=== PATIENT | female | born 1990 | race Caucasian/White ===

== ENCOUNTER 2017-10-30 22:45 | Inpatient (IN) | payer OTHER ==
[2017-10-31 00:50] VITALS: BMI 37.7
--- NOTE | 2017-10-31 00:53 | HP ---
Past Medical History - Admission Chief Complaint: Vaginal bleeding History of Present Illness: 27 yo @ 37 weeks gestation presents c/o vaginal bleeding. She admit to mild contractions pain. EDC 11/16/17. Upon admission she was 3-4cm dilated with intact membrane. History Source: Patient Limitations to Obtaining History: No Limitations - Past Medical History ...: 3 ...Para: 2 ...Term: 2 ...: 0 ...Spon : 0 ...Induced : 0 ...LMP: 01/26/17 ... Weeks Gestation by Dates: 39.4 ...EDC by Dates: 11/02/17 ...EDC by Sono: 11/16/17 - Past Surgical History Past Surgical History: Yes: None Hx Myomectomy: No Hx Transabdominal Cerclage: No - Smoking History Smoking history: Never smoked Have you smoked in the past 12 months: No - Alcohol/Substance Use Hx Alcohol Use: No History of Substance Use: reports: None - Social History Usual Living Arrangement: Yes: With Spouse History of Recent Travel: No Home Medications - Allergies Allergies/Adverse Reactions: Allergies Allergy/AdvReac Type Severity Reaction Status Date / Time No Known Allergies Allergy Verified 09/02/14 11:07 - Home Medications Home Medications: Ambulatory Orders Vit 108/Iron/Folic AC [ One Tablet] 1 each PO DAILY 06/27/14 Acetaminophen [Tylenol .Regular Strength -] 250 mg PO Q3H PRN #3 tablet Ferrous Sulfate [Feosol] 325 mg PO BID #1 ud 09/05/14 Ibuprofen [Motrin -] 600 mg PO Q4H PRN #0 tablet 09/05/14 Review of Systems - Review of Systems Constitutional: reports: No Symptoms Eyes: reports: No Symptoms HENT: reports: No Symptoms Neck: reports: No Symptoms Cardiovascular: reports: No Symptoms Respiratory: reports: No Symptoms Gastrointestinal: reports: No Symptoms Genitourinary: reports: Vaginal Bleeding Breasts: reports: No Symptoms Reported Musculoskeletal: reports: No Symptoms Integumentary: reports: No Symptoms Neurological: reports: No Symptoms Endocrine: reports: No Symptoms Hematology/Lymphatic: reports: No Symptoms Psychiatric: reports: No Symptoms Pain Intensity: 3 Physical Exam - Maternity Vital Signs: Vital Signs Temperature 98.7 F 01/10/18 23:39 Pulse Rate 89 10/30/17 23:39 Respiratory Rate 20 10/30/17 23:39 Blood Pressure 106/63 10/30/17 23:39 O2 Sat by Pulse Oximetry (%) Constitutional: Yes: Well Nourished Eyes: Yes: Conjunctiva Clear HENT: Yes: Atraumatic Neck: Yes: Supple Cardiovascular: Yes: Regular Rate and Rhythm Lungs: Clear to auscultation - Abdominal Exam/OB Number of Fetuses: Single Presentation: Vertex - Vaginal Exam/OB Dilatation (cm): 3 Effacement (%): 60 Amniotic Membrane Status: Intact Station: -3 - Physical Exam ...Motor Strength: WNL Psychiatric: Yes: Alert, Oriented Problem List - Problems (1) Vaginal bleeding in Code(s): O46.90 - ANTEPARTUM HEMORRHAGE, UNSPECIFIED, UNSPECIFIED TRIMESTER Assessment/Plan IUP @ 37 weeks Vaginal bleeding Early labor Admit to L&D Analgesia as needed Anticipate
[2017-10-31] MEDS: DEXTROSE 5%-LACTATED RINGERS 1,000 ML IV SCH ×2 (01:30→07:45)
[2017-10-31] MEDS ORDERED: BUTORPHANOL TARTRATE 1 MG/ML VIAL IVPUSH PRN (01:54)
[2017-10-31] MEDS ORDERED: PROMETHAZINE HCL 25 MG/1 ML VIAL IVPB PRN (01:55)
--- NOTE | 2017-10-31 01:59 | PN ---
Progress Note (short form) - Note Progress Note: Patient is lying comfortably in bed. FHR : reactive [place] : + regular contractions VE : / -2 SROM ( meconium ) A/P : Early labor Analgesia as needed Continue monitoring Problem List - Problems (1) Vaginal bleeding in Code(s): O46.90 - ANTEPARTUM HEMORRHAGE, UNSPECIFIED, UNSPECIFIED TRIMESTER
[2017-10-31 02:11] LABS: BASO % 0.3 % (0-2.0); EOS % 0.2 % (0-4.5); HEMATOCRIT 36.8 % (32.4-45.2); HEMOGLOBIN 12.1 GM/dL (10.7-15.3); LYMPH % 28.1 % (8-40); MCH 28.7 pg (25.7-33.7); MCHC 32.9 g/dl (32.0-36.0); MEAN CELL VOLUME 87.4 fl (80-96); MEAN PLT VOLUME 8.9 fl (7.5-11.1); MONO % 5.2 % (3.8-10.2); NEUT % 66.2 % (42.8-82.8); PLATELET COUNT 204 K/MM3 (134-434); RBC 4.21 M/mm3 (3.60-5.2); RDW 14.6 % (11.6-15.6); WHITE BLOOD COUNT 9.5 K/mm3 (4.0-10.0)
[2017-10-31 02:24] LABS: INR 1.03 (0.82-1.09); PROTHROMBIN TIME (PATIENT) 11.6 SEC (9.98-11.88)
[2017-10-31 02:27] LABS: ACTIVATED PTT 25.7 SECONDS (26.9-34.4)
[2017-10-31 02:31] LABS: ANION GAP 10 (8-16); BLOOD UREA NITROGEN 7 mg/dL (7-18); CHLORIDE 106 mmol/L (98-107); CO2 23 mmol/L (21-32); CREATININE 0.4 mg/dL (0.55-1.02); GLUCOSE,RANDOM 98 mg/dL (74-106); POTASSIUM 3.6 mmol/L (3.5-5.1); SODIUM 139 mmol/L (136-145)
[2017-10-31] MEDS ORDERED: OXYTOCIN 15 UNITS/ LR 250 ML 15 UNIT/250 ML INFUS.BAG IVPB SCH (03:30)
[2017-10-31] MEDS ORDERED: OXYTOCIN 15 UNITS/ LR 250 ML 15 UNIT/250 ML INFUS.BAG IVPB ONE (04:49)
[2017-10-31] MEDS ORDERED: BUTORPHANOL TARTRATE 1 MG/ML VIAL ONE ×2 (05:51)
[2017-10-31] MEDS ORDERED: PROMETHAZINE HCL 25 MG/1 ML VIAL ONE (05:51)
[2017-10-31] MEDS ORDERED: LIDOCAINE HCL 1% PRESERVATIVE FREE - 30ML VIAL ONE (08:15)
[2017-10-31] MEDS ORDERED: OXYTOCIN 20 UNITS in 0.9% NS 20 UNIT/1,000 ML INFUS.BAG IV ONE ×2 (08:16→12:25)
[2017-10-31] MEDS ORDERED: FENTANYL/BUPIVACAINE/NS/PF - PCEA - 50 ML DISP.SYRIN EP ONE (08:57)
[2017-10-31] MEDS: FENTANYL/BUPIVACAINE/NS/PF - PCEA - 50 ML DISP.SYRIN EP SCH (09:25)
[2017-10-31] MEDS ORDERED: NALOXONE HCL 0.4 MG/ML VIAL IVPUSH PRN (09:36)
[2017-10-31] MEDS ORDERED: ELECTROLYTE-148 SOLN 1,000 ML IV SCH (09:45)
[2017-10-31] MEDS ORDERED: ACETAMINOPHEN 325 MG TABLET (FP) PO PRN (11:44)
[2017-10-31] MEDS ORDERED: IBUPROFEN 600 MG TABLET (FP) PO PRN (11:44)
[2017-10-31] MEDS ORDERED: WITCH HAZEL 50% (TUCKS) 40 PAD/JAR PAD TP PRN (11:44)
[2017-10-31] MEDS ORDERED: METHYLERGONOVINE MALEATE 0.2 MG/1 ML AMP IM PRN (11:44)
[2017-10-31] MEDS ORDERED: BISACODYL 10 MG SUPP.RECT RC PRN (11:44)
[2017-10-31] MEDS ORDERED: BENZOCAINE 20% 57 GM BOTTLE TP PRN (11:44)
[2017-10-31] MEDS ORDERED: BENZOCAINE 28 GM HEMORRHOIDAL OINTMENT TP PRN (11:44)
[2017-10-31] MEDS ORDERED: OXYTOCIN 20 UNITS in 0.9% NS 20 UNIT/1,000 ML INFUS.BAG IV SCH (11:45)
--- NOTE | 2017-10-31 11:48 | PN ---
Delivery - Delivery Vaginal Delivery: Spontaneous Type of Anesthesia: Epidural Episiotomy/Laceration: Perineal Extension/lac, 2nd degree EBL (cc): 300 Delivery, Single - Stages of Labor Date 1st Stage Initiatied: 10/31/17 Time 1st Stage Initiated: 00:00 Date 2nd Stage Initiated: 10/31/17 Time 2nd Stage Initiated: 10:00 Date of Delivery: 10/31/17 Time of Delivery: 10:06 Time Placenta Delivered: 10:10 - Condition of Infant [employer] Office Assistant/Special Education Assistant Present: Yes Name: Ken Jordan Gender: Male Weight: 8 lb 5 oz Position: Right, OA Total Hours ROM (Hrs/Mins): 8HRS 30MIN - 1 Minute Total Score: 9 5 Minutes Total Score: 9 - Feeding Plan Initial Plan: Exclusive throughout hospitalization Remarks - Remarks Remarks: Normal spontaneous vaginal delivery of a live boy over second degree laceration. Nose / Oropharynx suctioned @ perineum. Nuchal cord x 1 clamped and cut. Placenta expelled spontaneously intact. Laceration repaired with 2.0 Chromic.
[2017-10-31] MEDS ORDERED: TUBERCULIN PPD 5 TU/0.1ML SYRINGE (IN PATIENT USE ONLY) ID ONE (13:00)
[2017-10-31] MEDS: FERROUS SO4 325 MG TABLET (FP) PO SCH ×2 (15:03→18:12)
[2017-11-01 07:19] LABS: BASO % 0.4 % (0-2.0); EOS % 0.2 % (0-4.5); HEMATOCRIT 37.5 % (32.4-45.2); HEMOGLOBIN 11.9 GM/dL (10.7-15.3); LYMPH % 29.1 % (8-40); MCHC 31.8 g/dl (32.0-36.0); MEAN PLT VOLUME 8.8 fl (7.5-11.1); MONO % 5.7 % (3.8-10.2); NEUT % 64.6 % (42.8-82.8); PLATELET COUNT 180 K/MM3 (134-434); RBC 4.26 M/mm3 (3.60-5.2); RDW 15.1 % (11.6-15.6)
[2017-11-01] MEDS: FERROUS SO4 325 MG TABLET (FP) PO SCH ×3 (08:03→17:08)
--- NOTE | 2017-11-01 08:57 | PN ---
Post Progress Note - Subjective Subjective: Pt seen/evaluated and doing well. Pain controlled, Tolerating diet, ambulating voiding, not yet passing flatus. VB minimal. Denies CP/SOB/F/C/RAMÍREZ. Type of Delivery: Vital Signs: Vital Signs Temperature 97.7 F 11/01/17 06:00 Pulse Rate 88 11/01/17 06:00 Respiratory Rate 20 11/01/17 06:00 Blood Pressure 92/56 11/01/17 06:00 O2 Sat by Pulse Oximetry (%) 98 10/31/17 10:00 Breast Exam: Yes: Soft Uterus: Yes: Fundus Firm, Fundus below umbilicus Abdomen/GI: Yes: Abdomen soft, Tolerating PO. No: Tender Lochia, amount: Small Extremities: Yes: Calves non-tender. No: Edema Activity: Ambulating - Labs Labs: CBC WBC 14.0 K/mm3 (4.0-10.0) H D 11/01/17 06:45 RBC 4.26 M/mm3 (3.60-5.2) 11/01/17 06:45 Hgb 11.9 GM/dL (10.7-15.3) 11/01/17 06:45 Hct 37.5 % (32.4-45.2) 11/01/17 06:45 MCV 88.0 fl (80-96) 11/01/17 06:45 MCH 28.0 pg (25.7-33.7) 11/01/17 06:45 MCHC 31.8 g/dl (32.0-36.0) L 11/01/17 06:45 RDW 15.1 % (11.6-15.6) 11/01/17 06:45 Plt Count 180 K/MM3 (134-434) 11/01/17 06:45 MPV 8.8 fl (7.5-11.1) 11/01/17 06:45 Neutrophils % 64.6 % (42.8-82.8) 11/01/17 06:45 Lymphocytes % 29.1 % (8-40) 11/01/17 06:45 Monocytes % 5.7 % (3.8-10.2) 11/01/17 06:45 Eosinophils % 0.2 % (0-4.5) 11/01/17 06:45 Basophils % 0.4 % (0-2.0) 11/01/17 06:45 Problem List - Problems (1) Vaginal delivery Code(s): O80 - ENCOUNTER FOR FULL-TERM UNCOMPLICATED DELIVERY Assessment/Plan 27 y/o PPD#1 s/p normal - AFVSS - Hgb 11.9, pt stable - regular diet, PO pain meds, encourage ambulation - routine post care
[2017-11-01] MEDS: PRENATAL VITAMINS W/ FOLIC ACID TABLET (FP) PO SCH (09:24)
[2017-11-01] MEDS ORDERED: DIPHTH,PERTUSS(ACELL),TET 0.5 ML DISP.SYRIN IM ONE (10:00)
[2017-11-01] MEDS ORDERED: FLU VACC QS2017-18 36MOS UP/PF 60 MCG/0.5 ML SYRINGE IM ONE (10:00)
[2017-11-01] MEDS ORDERED: SENNOSIDES/DOCUSATE COMBO (SENNA PLUS) TABLET (UD) PO PRN (22:00)
[2017-11-01 23:50] VITALS: TEMP 97.8
[2017-11-02] MEDS: FERROUS SO4 325 MG TABLET (FP) PO SCH ×2 (08:06→11:32)
[2017-11-02] MEDS: PRENATAL VITAMINS W/ FOLIC ACID TABLET (FP) PO SCH (09:24)
[2017-11-02 10:14] VITALS: BP 115/59; PULSE 94
[2017-11-02] MEDS: FENTANYL/BUPIVACAINE/NS/PF - PCEA - 50 ML DISP.SYRIN EP SCH (10:19)
== END 2017-11-02 15:00 | disposition home or self-care (01) | DRG 560 ==
LOC: JDEL 22:45 → JLDR 10-31 → J3W 10-31 12:44
PROVIDERS: ADMIT Obstetrics & Gynecology; ATTEND Obstetrics & Gynecology
PROC: 10E0XZZ Delivery of Products of Conception, External Approach (ICD-10-PCS; principal; 2017-10-31)
PROC: 0KQM0ZZ Repair Perineum Muscle, Open Approach (ICD-10-PCS; 2017-10-31)
DX: O70.1 Second degree perineal laceration during delivery (principal); Z3A.37 37 weeks gestation of pregnancy; Z37.0 Single live birth
CPT/HCPCS: 36415; 59409; 71046-TC; 80048; 85025; 85610; 85730; 86593; 86850; 86900; 86901; 87389; 90686; 90715